=== PATIENT | male | born 1955 | race Two or more races ===

== ENCOUNTER 2020-07-16 09:34 | Emergency (ER) | payer MEDICAID ==
[~2020-07-16] VITALS: Ht 165.1 cm; Wt 91.0 kg
[~2020-07-16 09:34] MED LIST: AMA4; ASPI-1497; LISI10TA; METF1000; METO50TA95; PIOG15TA6; SIMV40TA2; [UNRECOGNIZED DRUG - OTHER]
[2020-07-16] MEDS ORDERED: DEXAMETHASONE 4MG TABLET PO ONE (10:15)
[2020-07-16 11:50] VITALS: BP 175/75
== END 2020-07-16 12:17 | disposition home or self-care (01) ==
LOC: ER 09:34
DX: E11.9 Type 2 diabetes mellitus without complications (principal); I10 Essential (primary) hypertension; I25.2 Old myocardial infarction; Z79.82 Long term (current) use of aspirin; Z79.899 Other long term (current) drug therapy; Z20.828 Contact with and (suspected) exposure to other viral communicable diseases; Z90.49 Acquired absence of other specified parts of digestive tract
CPT/HCPCS: 71045; 93005; 99285; C9803; J8540; U0003

== ENCOUNTER 2020-07-18 09:08 | Emergency (ER) | payer MEDICAID ==
[~2020-07-18] VITALS: Ht 175.3 cm; Wt 80.0 kg
[2020-07-18] MEDS ORDERED: AZITHROMYCIN 500 MG TABLET PO ONE (10:45)
[2020-07-18 11:15] VITALS: BP 158/74
[2020-07-18 11:15] LABS: HEMATOCRIT. 46.2 % (42.0-52.0); HEMOGLOBIN. 15.3 g/dL (14.0-18.0); MEAN CORPUSCULAR HEMOGLOBIN 30.6 pg (28.0-32.0); MEAN CORPUSCULAR VOLUME 91.9 fL (80.0-94.0); MEAN PLATELET VOLUME 7.8 fl (7.4-10.4); PLATELET 254 x1000/uL (130-400); RED BLOOD CELL COUNT 5.02 mill/uL (4.7-6.1); RED CELL DISTRIBUTION WIDTH 13.8 % (11.6-14.6)
[2020-07-18 11:23] LABS: CHLORIDE 102 mEq/L (98-107)
[2020-07-18 11:43] LABS: PLATELET ESTIMATE NORMAL
== END 2020-07-18 12:01 | disposition home or self-care (01) ==
LOC: ER 09:08
DX: J18.9 Pneumonia, unspecified organism (principal); I10 Essential (primary) hypertension
CPT/HCPCS: 36415; 71045; 80053; 83605; 83880; 84484; 85025; 93005; 99285